=== PATIENT | female | born 2005 | race Caucasian/White ===

== ENCOUNTER 2024-07-02 14:47 | Outpatient (CLI) | payer BC, SELFPAY ==
[2024-07-15 14:04] LABS: Pap Test Reviewed by Path Done
== END 2024-07-02 14:48 | disposition home or self-care (01) ==
LOC: NFLDREF 14:47
PROVIDERS: Visit Provider Registered Nurse
DX: Z12.4 Encounter for screening for malignant neoplasm of cervix (principal)
CPT/HCPCS: 87624; 87625; 88141; 88142

== ENCOUNTER 2024-12-29 15:08 | Outpatient (CLI) | payer OTHER, SELFPAY | END 2024-12-29 15:09 | disposition home or self-care (01) | DX: Z52.3 Bone marrow donor (principal) ==